=== PATIENT | male | born 1955 | race Caucasian/White ===

== ENCOUNTER 2019-12-03 17:47 | Emergency (ER) | payer SELFPAY ==
[~2019-12-03] VITALS: Ht 170.2 cm; Wt 91.0 kg
[2019-12-03 19:36] LABS: BASOPHILS % 0.7 % (0.0-2.0); EOSINOPHILS % 1.5 % (0.0-5.0); HEMATOCRIT. 41.3 % (42.0-52.0); HEMOGLOBIN. 14.1 g/dL (14.0-18.0); MEAN CORPUSCULAR HEMOGLOBIN 30.3 pg (28.0-32.0); MEAN CORPUSCULAR VOLUME 88.7 fL (80.0-94.0); MEAN PLATELET VOLUME 8.9 fl (7.4-10.4); MONOCYTES % 8.1 % (2.0-8.0); NEUTROPHILS % 72.7 % (40.0-76.0); PLATELET 220 x1000/uL (130-400); RED BLOOD CELL COUNT 4.66 mill/uL (4.7-6.1); RED CELL DISTRIBUTION WIDTH 12.5 % (11.6-14.6)
[2019-12-03 19:45] LABS: CHLORIDE 107 mEq/L (98-107)
[2019-12-03 19:52] LABS: ETHANOL BLOOD < 10 mg/dL
[2019-12-03] MEDS ORDERED: LORAZEPAM 2MG/ML CPJ ONE (23:23)
[2019-12-03] MEDS ORDERED: HALOPERIDOL LACTATE 5MG/ML VIAL IM ONE ×2 (23:23→23:30)
[2019-12-03] MEDS ORDERED: LORAZEPAM 2MG/ML CPJ IM ONE (23:30)
[2019-12-03 23:55] LABS: *BARBITURATES SCREEN URINE NEGATIVE (NEGATIVE); *BENZODIAZEPINES SCREEN URINE NEGATIVE (NEGATIVE)
[2019-12-03 23:56] LABS: *AMPHETAMINES SCREEN URINE PRESUMTIVE POSITIVE (NEGATIVE); *COCAINE SCREEN URINE NEGATIVE (NEGATIVE); CANNABINOID URINE SCREEN NEGATIVE (NEGATIVE); METHADONE URINE SCREEN NEGATIVE (NEGATIVE); OPIATES URINE SCREEN NEGATIVE (NEGATIVE); PHENCYCLIDINE URINE SCREEN NEGATIVE (NEGATIVE)
[2019-12-04] MEDS ORDERED: DIPHENHYDRAMINE 50MG/ML VIAL IM ONE (03:00)
[2019-12-05] MEDS ORDERED: ZIPRASIDONE HCL 80MG CAPSULE PO ONE (01:15)
[2019-12-05] MEDS ORDERED: ZIPRASIDONE HCL 40MG CAPSULE PO SCH (02:00)
[2019-12-05 16:34] VITALS: BP 112/50
== END 2019-12-05 16:49 ==
LOC: ER 18:00
DX: S71.112A Laceration without foreign body, left thigh, initial encounter (principal); F20.9 Schizophrenia, unspecified; F15.129 Other stimulant abuse with intoxication, unspecified; F16.10 Hallucinogen abuse, uncomplicated; F17.210 Nicotine dependence, cigarettes, uncomplicated; Z75.1 Person awaiting admission to adequate facility elsewhere; Z71.6 Tobacco abuse counseling; X78.1XXA Intentional self-harm by knife, initial encounter; Y93.89 Activity, other specified; Y92.488 Other paved roadways as the place of occurrence of the external cause
CPT/HCPCS: 36415; 80053; 80305; 80320; 83690; 85025; 96372; 99285; 99406; J1200; J1630; J2060; G0480

== ENCOUNTER 2020-06-28 13:04 | Emergency (ER) | payer MEDICAID, OTHER ==
[~2020-06-28] VITALS: Ht 182.9 cm; Wt 100.0 kg
[2020-06-28] MEDS ORDERED: LORAZEPAM 2MG/ML CPJ IM STA (13:19)
[2020-06-28] MEDS ORDERED: HALOPERIDOL LACTATE 5MG/ML VIAL IM STA (13:19)
[2020-06-28 14:24] LABS: BASOPHILS % 0.5 % (0.0-2.0); EOSINOPHILS % 0.8 % (0.0-5.0); HEMATOCRIT. 48.5 % (42.0-52.0); HEMOGLOBIN. 16.7 g/dL (14.0-18.0); LYMPHOCYTES % 27.3 % (20.0-50.0); MEAN CORPUSCULAR HEMOGLOBIN 30.9 pg (28.0-32.0); MEAN CORPUSCULAR VOLUME 89.6 fL (80.0-94.0); MEAN PLATELET VOLUME 9.3 fl (7.4-10.4); MONOCYTES % 6.6 % (2.0-8.0); NEUTROPHILS % 64.8 % (40.0-76.0); PLATELET 219 x1000/uL (130-400); RED BLOOD CELL COUNT 5.41 mill/uL (4.7-6.1)
[2020-06-28 14:31] LABS: CHLORIDE 107 mEq/L (98-107)
[2020-06-28 14:36] LABS: ETHANOL BLOOD < 10 mg/dL
[2020-06-28 17:16] LABS: CLARITY URINE CLEAR (CLEAR); COLOR URINE YELLOW (YELLOW); KETONES URINE TRACE (NEGATIVE); LEUKOCYTE ESTERASE URINE NEGATIVE (NEGATIVE); NITRITE URINE NEGATIVE (NEGATIVE); OCCULT BLOOD URINE NEGATIVE (NEGATIVE); PH URINE 5.5 (4.5-8.0); PROTEIN URINE TRACE (NEGATIVE); SPECIFIC GRAVITY URINE 1.026 (1.005-1.030)
[2020-06-28 17:41] LABS: *AMPHETAMINES SCREEN URINE PRESUMTIVE POSITIVE (NEGATIVE); CANNABINOID URINE SCREEN NEGATIVE (NEGATIVE); OPIATES URINE SCREEN NEGATIVE (NEGATIVE); PHENCYCLIDINE URINE SCREEN NEGATIVE (NEGATIVE)
[2020-06-28 17:42] LABS: *BARBITURATES SCREEN URINE NEGATIVE (NEGATIVE); *BENZODIAZEPINES SCREEN URINE NEGATIVE (NEGATIVE); *COCAINE SCREEN URINE NEGATIVE (NEGATIVE); METHADONE URINE SCREEN NEGATIVE (NEGATIVE)
[2020-06-29 02:59] VITALS: BP 115/70
== END 2020-06-29 03:01 | disposition home or self-care (01) ==
LOC: ER 13:04
DX: T43.621A Poisoning by amphetamines, accidental (unintentional), initial encounter (principal); Y92.89 Other specified places as the place of occurrence of the external cause; F20.9 Schizophrenia, unspecified
CPT/HCPCS: 36415; 70450; 80053; 80305; 80307; 80320; 80329; 81003; 85025; 93005; 96372; 99285; J1630; J2060; G0480

== ENCOUNTER 2024-01-15 08:16 | Emergency (ER) | payer BC, MEDICAID ==
[~2024-01-15] VITALS: Ht 172.7 cm; Wt 85.0 kg
[2024-01-15 08:24] VITALS: O2SAT 100
[2024-01-15 09:09] LABS: BASOPHILS % 0.9 % (0.0-2.0); EOSINOPHILS % 1.4 % (0.0-5.0); HEMATOCRIT. 37.6 % (42.0-52.0); HEMOGLOBIN. 12.7 g/dL (14.0-18.0); LYMPHOCYTES % 15.8 % (20.0-50.0); MEAN CORPUSCULAR HEMOGLOBIN 30.6 pg (28.0-32.0); MEAN CORPUSCULAR HGB CONC 33.9 g/dL (31.0-37.0); MEAN CORPUSCULAR VOLUME 90.3 fL (80.0-94.0); MEAN PLATELET VOLUME 8.1 fl (7.4-10.4); MONOCYTES % 8.5 % (2.0-8.0); NEUTROPHILS % 73.4 % (40.0-76.0); PLATELET 261 x1000/uL (130-400); RED BLOOD CELL COUNT 4.17 mill/uL (4.7-6.1); RED CELL DISTRIBUTION WIDTH 14.4 % (11.6-14.6)
[2024-01-15 09:17] LABS: AMMONIA < 10 uMol/L (<32)
[2024-01-15 09:18] LABS: ACETAMINOPHEN < 2 ug/mL (10-30); ALANINE AMINOTRANSFERASE 26 IU/L (10-49); ALBUMIN 4.1 g/dL (3.2-4.8); ASPARTATE AMINOTRANSFERASE 31 IU/L (<34); BILIRUBIN TOTAL 0.8 mg/dL (0.1-1.0); CALCIUM 8.9 mg/dL (8.7-10.4); CARBON DIOXIDE 25 mEq/L (21-32); CHLORIDE 107 mEq/L (98-107); CREATINE KINASE 452 IU/L (46-171); CREATININE 0.9 mg/dL (0.6-1.3); GLUCOSE 101 mg/dL (70-105); POTASSIUM 3.4 mEq/L (3.5-5.1); PROTEIN TOTAL 7.2 g/dL (6.0-8.3); SODIUM 139 mEq/L (136-145); UREA NITROGEN BLOOD 31 mg/dL (9-23)
[2024-01-15 09:26] LABS: ETHANOL BLOOD < 10 mg/dL (<10)
[2024-01-15] MEDS: RISPERIDONE 0.5MG TABLET PO SCH (11:16)
[2024-01-15 16:39] LABS: CLARITY URINE CLEAR (CLEAR); COLOR URINE YELLOW (YELLOW); GLUCOSE URINE NEGATIVE (NEGATIVE); KETONES URINE TRACE (NEGATIVE); LEUKOCYTE ESTERASE URINE NEGATIVE (NEGATIVE); NITRITE URINE NEGATIVE (NEGATIVE); OCCULT BLOOD URINE TRACE (NEGATIVE); PH URINE 5.5 (4.5-8.0); PROTEIN URINE 1+ (NEGATIVE); SPECIFIC GRAVITY URINE 1.025 (1.005-1.030)
[2024-01-15 16:45] LABS: *AMPHETAMINES SCREEN URINE PRESUMPTIVE POSITIVE (NEGATIVE); *BARBITURATES SCREEN URINE NEGATIVE (NEGATIVE); *BENZODIAZEPINES SCREEN URINE NEGATIVE (NEGATIVE); *COCAINE SCREEN URINE NEGATIVE (NEGATIVE); CANNABINOID URINE SCREEN NEGATIVE (NEGATIVE); ECSTASY MDMA SCREEN URINE CONF.TEST INDICATED (NEGATIVE); METHADONE URINE SCREEN Neg (NEGATIVE); OPIATES URINE SCREEN NEGATIVE (NEGATIVE); PHENCYCLIDINE URINE SCREEN NEGATIVE (NEGATIVE)
[2024-01-15 17:54] LABS: RBC URINE NONE SEEN /hpf (0-2); WBC URINE 0-2 /hpf (0-2)
[2024-01-15 17:55] LABS: BACTERIA URINE TRACE; SQUAMOUS EPITHELIAL CELL URINE FEW /lpf (RARE/1+)
[2024-01-15] MEDS: ZIPRASIDONE MESYLATE 20MG/VIAL IM ONE (20:00)
[2024-01-16 10:00] VITALS: BP 121/71; PULSE 73; RESP 18; TEMP 97.8
== END 2024-01-16 12:55 ==
LOC: ER 08:16
DX: R45.6 Violent behavior (principal); F20.9 Schizophrenia, unspecified; Z20.822 Contact with and (suspected) exposure to COVID-19
CPT/HCPCS: 80053; 80305; 81003; 80307; 80329; 80320; 82140; 82550; 85025; 36415; 96372; 99285; 87426; J3486; G0480